=== PATIENT | female | born 1960 | race Caucasian/White ===

== ENCOUNTER → 2019-11-30 | Outpatient (CLI) | payer BC ==
[2019-11-30 10:48] LABS: ALANINE AMINOTRANSFERASE 26 U/L (0-55); ALBUMIN 4.2 GM/DL (3.2-4.5); ALKALINE PHOSPHATASE 76 U/L (40-136); BILIRUBIN,TOTAL 0.5 MG/DL (0.1-1.0); BUN/CREATININE RATIO 26; CALCIUM 9.5 MG/DL (8.5-10.1); CARBON DIOXIDE 27 MMOL/L (21-32); CHLORIDE 103 MMOL/L (98-107); CREATININE SERUM 0.82 MG/DL (0.60-1.30); GFR ESTIMATED > 60; GLUCOSE 107 MG/DL (70-105); POTASSIUM 4.1 MMOL/L (3.6-5.0); SODIUM 142 MMOL/L (135-145); TOTAL PROTEIN 7.6 GM/DL (6.4-8.2)
[2019-11-30 15:15] LABS: CHOLESTEROL 176 MG/DL (< 200); HDL CHOLESTEROL 60 MG/DL (40-60); TRIGLYCERIDES 59 MG/DL (<150); VLDL CHOLESTEROL 12 MG/DL (5-40)
== END ==
LOC: LAB FS 08:33
PROVIDERS: ATTEND Family Medicine
DX: Z00.00 Encounter for general adult medical examination without abnormal findings (principal)
CPT/HCPCS: 36415; 80053; 80061

== ENCOUNTER 2020-03-04 06:22 | Outpatient (RCR) | payer BC ==
[~2020-03-04] VITALS: Ht 165.1 cm; Wt 98.1 kg
[2020-03-04] MEDS ORDERED: LOSA25TA41 PO (13:06)
== END 2020-03-05 15:15 | disposition home or self-care (01) ==
LOC: PREOP 06:22
PROVIDERS: ATTEND Surgery
DX: Z01.818 Encounter for other preprocedural examination (principal)

== ENCOUNTER → 2020-03-05 | Outpatient (CLI) | payer BC ==
[~2020-03-05] MED LIST: ASPI-586 PO; LOSA25TA41 PO
== END ==
LOC: LAB FS 08:53
PROVIDERS: ATTEND Nurse Practitioner Family
DX: Z01.812 Encounter for preprocedural laboratory examination (principal); Z20.828 Contact with and (suspected) exposure to other viral communicable diseases
CPT/HCPCS: 87635

== ENCOUNTER 2020-03-08 11:08 | Day surgery (SDC) | payer BC ==
[2020-03-08] VITALS (11 sets, daily range): BP systolic 104–183; BP diastolic 53–72
[~2020-03-08] VITALS: Ht 165.1 cm; Wt 98.1 kg
[~2020-03-08 11:08] MED LIST changes: -ASPI-586 PO
[2020-03-08] MEDS ORDERED: NS IV 500 ML 500 ML IV PRN (11:24)
[2020-03-08] MEDS ORDERED: NS IV 500 ML 500 ML ONE (11:28)
[2020-03-08] MEDS ORDERED: LIDOCAINE JELLY 2% 6 ML SYRINGE MM PRN (11:30)
[2020-03-08] MEDS ORDERED: fentaNYL INJECTION 100 MCG/2 ML AMP IVP ONE (11:30)
--- NOTE | 2020-03-08 11:32 | Conscious Sedation/ASA ---
Conscious Sedation Pre-Proced Time 11:30 ASA Score 2 For ASA 3 and 4: Consider anesthesia and medical clearance. Also, for patients with a history of failed moderate sedation consider anesthesia. Airway Lungs Heart ASA score ASA 1: a normal healthy patient ASA 2: a patient with a mild systemic disease (mid diabetes, controlled hypertension, obesity ASA 3: a patient with a severe systemic disease that limits activity (angina, COPD, prior Myocardial infarction) ASA 4: a patient with an incapacitating disease that is a constant threat to life (CHF, renal failure) ASA 5: a moribund patient not expected to survive 24 hrs. (ruptured aneurysm) ASA 6: a declared brain- patient whose organs are being harvested. For emergent operations, add the letter E after the classification Mallampati Classification Grade 2 Sedation Plan Analgesia, Amnesia, Plan communicated to team members, Discussed options with patient/fam, Discussed risks with patient/fam The patient is an appropriate candidate to undergo the planned procedure, sedation, and anesthesia. The patient immediately re-assessed prior to indication. ANDRZEJ METCALF MD Mar 08, 2020 11:32
--- NOTE | 2020-03-08 11:33 | Progress Note-Pre Operative ---
Pre-Operative Progress Note H&P Reviewed The H&P was reviewed, patient examined and no changes noted. Date Seen by Provider: Mar 08, 2020 Time Seen by Provider: 11: Date H&P Reviewed: Mar 08, 2020 Time H&P Reviewed: 11:30 Pre-Operative Diagnosis: heme + stool ANDRZEJ METCALF MD Mar 08, 2020 11:33
--- NOTE | 2020-03-08 11:34 | Discharge Inst-Surgical ---
D/C Lap Instructions-TEA Follow Up Activity as tolerated High Fiber Diet 25g or more per day Avoid Alcohol, Caffeine, Spicy Mears and Acid foods. Drink 64 fluid oz or more of fluids per day. Symptoms to Report: Fever over 101 degree F, Nausea/Vomiting If any problems/questions: Contact your physician or go to Emergency Room ANDRZEJ METCALF MD Mar 08, 2020 11:34
[2020-03-08] MEDS ORDERED: ASPI-586 PO (11:36)
[2020-03-08] MEDS ORDERED: HYDROcodone/APAP 5 MG/325 MG (LORTAB) TAB PO PRN (11:45)
[2020-03-08] MEDS ORDERED: morphine INJ 10 MG/ML 1ML (SYR OR VIAL) IVP PRN ×2 (11:45)
[2020-03-08] MEDS ORDERED: ONDANSETRON 4 MG/2 ML (SDV) Z0FRAN IVP PRN (11:45)
[2020-03-08] MEDS ORDERED: ACETAMINOPHEN 325 MG TABLET PO PRN (11:45)
[2020-03-08] MEDS ORDERED: LIDOCAINE JELLY 2% 6 ML SYRINGE ONE (12:10)
[2020-03-08] MEDS ORDERED: fentaNYL INJECTION 100 MCG/2 ML AMP ONE ×2 (12:11→12:23)
[2020-03-08] MEDS ORDERED: MIDAZOLAM 5 MG/5 ML (VERSED) VIAL ONE ×2 (12:11→12:23)
[2020-03-08] MEDS: MIDAZOLAM 5 MG/5 ML (VERSED) VIAL IV PRN ×2 (12:23→12:25)
--- OUTSIDE RECORDS SUMMARY | 2020-03-08 12:30 | XMS REPORT | Continuity of Care Document ---
Demographics Preferred Language Unknown Marital Status Unknown Spiritism Affiliation Unknown Race Unknown Ethnic Group Unknown Author Organization Unknown Address Unknown Phone Unavailable Allergies Active Description Code Type Severity Reaction Onset Reported/Identified Relationship to Patient Clinical Status Yes No Known Drug Allergies [id number] Drug Allergy Unknown N/A 03/04/2020 Medications There is no data. Problems Date Dx Coded Attending Type Code Diagnosis Diagnosed By 08/19/1514 ANDRZEJ METCALF MD Ot Z01.81 8 ENCOUNTER FOR OTHER PREPROCEDURAL EXAMIN 12/13/2019 ATIF THRASHER MD Ot Z00.00 ENCNTR FOR GENERAL ADULT MEDICAL EXAM W/ Procedures There is no data. Results Test Result Range SUREPATH PAP RFX HPV mRNA E6/E7 - 11:32 CLINICAL INFORMATION: NRG LMP: NRG PREV. PAP: NRG PREV. BX: NRG SOURCE: Cervix NRG STATEMENT OF ADEQUACY: NRG INTERPRETATION/RESULT: NRG NEGATIVE STRIPPER: NRG COMMENT NRG Coronavirus SARS-CoV-2 SO 2018 - 0 09:05 Coronavirus Ab [Units/volume] in Serum Negative Negative Encounters ACCT No. Visit Date/Time Discharge Status Pt. Type Provider Facility Loc./Unit Complaint [id number] 08/02/2019 16:15:00 Document Registration [id number] 03/04/2020 06:22:00 020 15:15:00 DIS Outpatient ANDRZEJ METCALF MD [facility] PREOP COLONOSCOPY [id number] 11/30/2019 08:33:00 020 23:59:59 CLS Outpatient ATIF THRASHER MD [facility] LAB FS ANNUAL PHYSICAL EXAM [id number] 03/08/2020 13:45:00 P EN Preadmit ANDRZEJ METCALF MD [facility] [place] ENDO +OCCULT BLOOD IN STOOL [id number] 03/05/2020 08:53:[address] Outpatient CLAUDETTE MA APRN [facility] LAB FS PRE SURG REQ
--- NOTE | 2020-03-08 12:51 | Progress Note-Post Operative ---
Post-Operative Progess Note Surgeon (s)/Reinforcing Steel Machine Operator (s) Surgeon ANDRZEJ METCALF MD Reinforcing Steel Machine Operator: none Pre-Operative Diagnosis heme + stool Post-Operative Diagnosis chronic stage 2 ext and int hemorrhoids. Procedure & Operative Findings Date of Procedure 03/08/20 Procedure Performed/Findings colonoscopy Anesthesia Type cs Estimated Blood Loss Estimated blood loss (mL): minimal Specimens/Packing Specimens Removed none ANDRZEJ METCALF MD Mar 08, 2020 12:51
--- NOTE | 2020-03-08 17:02 | OPERATIVE REPORT ---
DATE OF SERVICE: 03/08/2020 ATTENDING PRIMARY CARE PHYSICIAN: Dr. Reshma Rivero PREOPERATIVE DIAGNOSIS: Heme positive stool. POSTOPERATIVE DIAGNOSIS: Mild chronic stage II external and internal hemorrhoids. Remainder of the colon and rectum were normal. PROCEDURE: Colonoscopy. SURGEON: Andrzej Metcalf MD ANESTHESIA: Conscious sedation. ESTIMATED BLOOD LOSS: Minimal. FINDINGS: Same as postoperative diagnosis. DISPOSITION: The patient tolerated the procedure well. INDICATIONS: The patient is a 59-year-old female referred over to us for a colonoscopy. She states that she is doing well; however, does have some intermittent episodes of constipation. She also does report noticing a small amounts of self-limited bright red blood per rectum after having a bowel movement. She also was seen by her physician where Hemoccult test was performed and found to be positive. She does not report any dark tarry stools. She also does not report any family history of colon cancer. She did have a colonoscopy approximately 8 years ago. DESCRIPTION OF PROCEDURE: The patient was brought to the endoscopy suite, laid in the left lateral decubitus position. After adequate IV pain and sedative medications and conscious sedation anesthesia, digital rectal examination was performed. Mild chronic stage II external and internal hemorrhoids were identified, which were not actively edematous nor inflamed and no bleeding. Normal sphincter tone was felt and there were no palpable masses. The endoscope was then intubated to the anus and rectum gently insufflated. The endoscope was then advanced to the valves of Panda of the rectum with no polyps or any neoplasms identified. The endoscope was then advanced through the sigmoid colon where no diverticulosis identified. The endoscope was then advanced to the remainder of the descending, transverse and ascending colon to the cecum, which were normal. There were no polyps, neoplasms as well as no mucosal inflammatory changes or any active bleeding sources identified. The endoscope was then slowly withdrawn while taking a second look and suctioning of residual air with no additional findings. The patient tolerated the procedure well. We will recommend medical management with a high fiber diet with 25 grams of fiber daily through supplemental sources as well as significant amounts of water to promote soft stools on a daily basis. With a consistent uniform soft stools the issues with rectal bleeding should stop on its own. Job ID: [id number] DocumentID: [id number] Dictated Date: 03/08/2020 12:41:40 Eligibility Counselor Date: 03/08/2020 17:02:14 Dictated By: ANDRZEJ METCALF MD
== END 2020-03-08 13:30 | disposition home or self-care (01) ==
LOC: ENDO 11:08
PROVIDERS: ATTEND Surgery
DX: K64.1 Second degree hemorrhoids (principal); R19.5 Other fecal abnormalities; I10 Essential (primary) hypertension; D50.9 Iron deficiency anemia, unspecified; Z79.82 Long term (current) use of aspirin; Z79.899 Other long term (current) drug therapy

== ENCOUNTER → 2022-03-16 | Outpatient (CLI) | payer BC ==
[~2022-03-16] MED LIST changes: +ASPI-586 PO
--- NOTE | 2022-03-16 18:53 | Diagnostic Imaging Report ---
INDICATION: Low back pain AP and lateral views of the lumbar spine are obtained. FINDINGS: Lumbar spinal curvature and alignment are unremarkable. There is advanced narrowing of lower lumbar disc spaces with associated lower lumbar facet sclerosis. No acute fracture is seen. IMPRESSION: Lower lumbar degenerative findings without acute abnormality identified. Dictated by: Dictated on workstation # [id number]
== END ==
LOC: RAD FS 15:17
PROVIDERS: ATTEND Family Medicine
DX: M47.816 Spondylosis without myelopathy or radiculopathy, lumbar region (principal)
CPT/HCPCS: 72100